=== PATIENT | female | born 1955 | race Caucasian/White ===

== ENCOUNTER 2017-12-10 16:30 | Observation (INO) | payer OTHER, SELFPAY ==
--- NOTE | 2017-12-04 14:29 | EKG12_ITS ---
Test Reason : PRE OP Blood Pressure : / mmHG Vent. Rate : 090 BPM Atrial Rate : 090 BPM P-R Int : 180 ms QRS Dur : 128 ms QT Int : 376 ms P-R-T Axes : 044 -02 002 degrees QTc Int : 459 ms Normal sinus rhythm Right bundle branch block Left ventricular hypertrophy with QRS widening Abnormal ECG Confirmed by ABIMAEL KAMARA, LESLIE ([id number]), assistant film editor ALEK BARTON ([id number]) on 12/10/2017 3:19:09 PM Referred By: Cade Guzman Confirmed By:LESLIE VARGHESE MD
[2017-12-04 16:12] LABS: Hematocrit 41.6 % (37-47); Hemoglobin 14.1 g/dl (12.0-15.0); Mean Corp Hgb Conc 33.9 g/gl (32-36); Mean Corpuscular Hgb 33.1 pg (27.0-32.0); Mean Corpuscular Volume 97.7 fL (81-99); Mean Platelet Vol. 10.7 fl (6.2-12.0); Platelet Count 238 K/mm3 (150-450); RBC Distribution Width CV 12.4 % (11.6-14.6); RBC Distribution Width SD 43.8 fl (35.1-43.9); Red Blood Count 4.26 M/mm3 (4.2-5.4); White Blood Count 5.8 K/mm3 (4.4-11.0)
[2017-12-04 16:15] LABS: Scan Indicated on CBC? Y/N NO
[2017-12-04 16:44] LABS: Anion Gap 10 (5-15); BUN 25 mg/dL (7-18); BUN/Creat Ratio 24.8 RATIO (10-20); Calcium,Total 8.8 mg/dL (8.5-10.1); Chloride 102 mmol/L (98-107); Creatinine, Serum 1.01 mg/dL (0.55-1.02); EST Glomerular Filtration Rate 59 mL/min (>60); Est Glom Filt Rate - Afr Amer 72 mL/min (>60); Glucose 87 mg/dL (74-106); Potassium 4.3 mmol/L (3.5-5.1); Sodium Level 140 mmol/L (136-145)
[2017-12-10] VITALS (24 sets, daily range): BP systolic 104–178; BP diastolic 53–91; PULSE 78–99; RESP 14–18; TEMP 36–36.8; O2SAT 2–100; BMI 45.0
[2017-12-10] MEDS: Cefazolin 2 GM in 0.9% Normal Saline 100 ML IV (09:43)
[2017-12-10] MEDS: Bupiv/Epi 0.5% Mpf 30 ML Vial (10:12)
--- NOTE | 2017-12-10 11:09 | PCM.IMDPSTOP ---
Immediate Post-Op Note Date of Procedure: 12/10/17 Primary Surgeon/Physician: Cade Guzman fire protection engineer: Edwin Baugh Pre-Operative Diagnosis: SAIS, AC Arthrosis, rotator cuff tear anf biceps tendonitis right shoulder Post-Operative Diagnosis: same Surgery/Procedure Performed:: Arthroscopic SAD, Olesya, biciptital tenotomy and rotator cuff repair right Description of Surgical Findings:: see note Estimated Blood Loss: min Specimen's removed: none Type of Anesthesia:: General/Regional ASA Class: ASA3 Severe Disease - Admit VTE Documentation VTE Present on Admission: No VTE Mechan Device Prophylaxis: SCD's VTE Pharm Prophylaxis ordered?: No Reason prophylaxis not ordered:: Treatment Not Indicated
--- NOTE | 2017-12-10 11:13 | OP.PN_ITS ---
Immediate Post-Op Note Date of Procedure: 12/10/17 Primary Surgeon/Physician: Cade Guzman reinforcer: Edwin Baugh Pre-Operative Diagnosis: SAIS, AC Arthrosis, rotator cuff tear anf biceps tendonitis right shoulder Post-Operative Diagnosis: same Surgery/Procedure Performed:: Arthroscopic SAD, Olesya, biciptital tenotomy and rotator cuff repair right Description of Surgical Findings:: see note Estimated Blood Loss: min Specimen's removed: none Type of Anesthesia:: General/Regional ASA Class: ASA3 Severe Disease - Admit VTE Documentation VTE Present on Admission: No VTE Mechan Device Prophylaxis: SCD's VTE Pharm Prophylaxis ordered?: No Reason prophylaxis not ordered:: Treatment Not Indicated
--- NOTE | 2017-12-10 11:39 | PCM.OP.BLANK ---
Operative Report Date of Procedure: 12/10/17 Primary Surgeon/Physician: Cade Guzman outside salesperson: Harley Baugh PA-C Preo-operative diagnosis: Right shoulder SAIS, AC arthrosis, biceps tendinopathy and rotator cuff tear Post-Operative Diagnosis: same Surgery/Procedure Performed: ASD, Olesya, biceps tenotomy and rotator cuff repair right Estimated Blood Loss: minimal Specimen's Removed: none Type of Anesthesia: General ASA Class: 3 Implants: [Arthrex fiberlink and loop x 2 with Arthrex swivellocks x 2] Surgical Indications: [ ] Procedure Description: Patient was greeted in the preoperative area. Their [right ] shoulder was marked with surgical marker. Preoperative antibiotics were administered. The patient was then taken to the operating suite in a stable condition. After adequate anesthesia was obtained and it was secured there placed in standard beachchair position. All bony prominences were well-padded her head was secured in a beachchair positioner. The arm was then prepped and draped in the usual sterile fashion. Surgical timeout was performed surgery was commenced. Standard posterior viewing portal was made and 30? arthroscope was introduced into the glenohumeral joint. Anterior portal was made under direct visualization. Extensive debridement of the anterior capsule was performed evaluation of the shoulder itself was performed with the following findings: [Moderate humeral head arthropathy, severe biceps tendonitis and a full thickness rotator cuff tear. T A biceps tenotomy was performed with an arthroscopy shaver. The undersurface of the rotator cuff was debrided with the shaver and a suture was placed in the cuff tear in order to identify it from the bursal surface. ]. The subacromial space was then entered and extensive debridement of the subacromial bursa was performed. The undersurface of the acromion was then debrided with a thermal wand. This did reveal a type II acromion. Subacromial decompression was then performed with a arthroscopic bur from anterolateral posteromedial create a type I acromion. When this was complete the wand was then utilized to debride the acromioclavicular joint. No significant osteoarthritic changes. A distal clavicle resection was then performed removing approximately 5 mm of distal clavicle not violating the superior acromioclavicular ligament. This was complete attention was then turned to the rotator cuff There was a complete tear of the supraspinatous tendon. ]. The greater tuberosity was debrided and decorticated to create some bleeding for rotator cuff healing. [The rotator cuff tear was repaired with two fiberlink Arthrex sutures and two fiberloops. These were brought out laterally and secured with two Arthrex Swivellock anchors ]. Excellent approximation of the rotator cuff to the decorticated bone was achieved. At this point all instruments were removed and the arthroscopic portals were closed with 3-0 nylon. Well-padded nonadherent dressing was applied and patient was taken to recovery room in stable condition. My hearing aid assistant, Mr. Baugh, was vital to the completion of this case. He assisted with positioning the patient. He provided visualization by moving the arm and the arthroscope during various portions of the diagnostic and operative arthroscopy. Subsequently he closed the wounds and applied the sterile dressing.
--- NOTE | 2017-12-10 11:53 | OP.PCM_ITS ---
Operative Report Date of Procedure: 12/10/17 Primary Surgeon/Physician: Cade Guzman speech assistant: Harley Baugh PA-C Preo-operative diagnosis: Right shoulder SAIS, AC arthrosis, biceps tendinopathy and rotator cuff tear Post-Operative Diagnosis: same Surgery/Procedure Performed: ASD, Olesya, biceps tenotomy and rotator cuff repair right Estimated Blood Loss: minimal Specimen's Removed: none Type of Anesthesia: General ASA Class: 3 Implants: [Arthrex fiberlink and loop x 2 with Arthrex swivellocks x 2] Surgical Indications: [ ] Procedure Description: Patient was greeted in the preoperative area. Their [right ] shoulder was marked with surgical marker. Preoperative antibiotics were administered. The patient was then taken to the operating suite in a stable condition. After adequate anesthesia was obtained and it was secured there placed in standard beachchair position. All bony prominences were well- padded her head was secured in a beachchair positioner. The arm was then prepped and draped in the usual sterile fashion. Surgical timeout was performed surgery was commenced. Standard posterior viewing portal was made and 30? arthroscope was introduced into the glenohumeral joint. Anterior portal was made under direct visualization. Extensive debridement of the anterior capsule was performed evaluation of the shoulder itself was performed with the following findings: [Moderate humeral head arthropathy, severe biceps tendonitis and a full thickness rotator cuff tear. T A biceps tenotomy was performed with an arthroscopy shaver. The undersurface of the rotator cuff was debrided with the shaver and a suture was placed in the cuff tear in order to identify it from the bursal surface. ]. The subacromial space was then entered and extensive debridement of the subacromial bursa was performed. The undersurface of the acromion was then debrided with a thermal wand. This did reveal a type II acromion. Subacromial decompression was then performed with a arthroscopic bur from anterolateral posteromedial create a type I acromion. When this was complete the wand was then utilized to debride the acromioclavicular joint. No significant osteoarthritic changes. A distal clavicle resection was then performed removing approximately 5 mm of distal clavicle not violating the superior acromioclavicular ligament. This was complete attention was then turned to the rotator cuff There was a complete tear of the supraspinatous tendon. ]. The greater tuberosity was debrided and decorticated to create some bleeding for rotator cuff healing. [The rotator cuff tear was repaired with two fiberlink Arthrex sutures and two fiberloops. These were brought out laterally and secured with two Arthrex Swivellock anchors ]. Excellent approximation of the rotator cuff to the decorticated bone was achieved. At this point all instruments were removed and the arthroscopic portals were closed with 3-0 nylon. Well-padded nonadherent dressing was applied and patient was taken to re covery room in stable condition. My assistant professor of forestry, Mr. Baugh, was vital to the completion of this case. He assisted with positioning the patient. He provided visualization by moving the arm and the arthroscope during various portions of the diagnostic and operative arthroscopy. Subsequently he closed the wounds and applied the sterile dressing.
[2017-12-10] MEDS: HYDROcodone Bitartrate/Apap 5/325 Tablet PO ×2 (15:25→23:57)
[2017-12-10] MEDS: HYDROmorphone 1 MG/ML Syringe IV ×2 (17:52→20:04)
[2017-12-10] MEDS: 0.9% Normal Saline 1,000 ML 100 ML IV (18:56)
[2017-12-11 03:00] VITALS: BP 162/87; PULSE 93; RESP 16; TEMP 36.6; O2SAT 93
[2017-12-11] MEDS: HYDROmorphone 1 MG/ML Syringe IV (04:43)
--- NOTE | 2017-12-11 07:38 | PCM.PN.ORT ---
Subjective: Patient sitting up in bed. Patient states pain is well-managed. Patient denies shortness of breath, chest pain, nausea vomiting, or calf pain. Has any numbness or tingling of the right arm or hand. Objective: Exam shows patient sitting comfortably without respiratory distress, speaking in full sentences. Patient is on room air. With a pulse ox of 93%. Patient has good flexion-extension rotation of her right hand as well as elbow neurovascular is intact. The dressings are clean dry intact. Patient is afebrile labs and vitals otherwise within normal limits - Physical Exam General: Alert, Oriented x3, Cooperative HEENT: PERRLA Oral: Moist Mucosa Cardiovascular: Regular rate Neurological: Cranial nerves II-XII grossly intact Psych/Mental Status: Normal Affect, Alert and oriented to time, place, person, mood and affect Vital Signs Temp Pulse Resp BP Pulse Ox 97.9 F 93 16 162/87 H 93 12/11/17 03:00 12/11/17 03:00 12/11/17 03:00 12/11/17 03:00 12/11/17 03:00 Oxygen Flow Rate (L/min) 2 Oxygen Delivery Method Room Air Weight: 122.7 kg Body Mass Index (BMI) 45.0 Intake and Output for Last 24 Hours 12/09/17 12/10/17 12/11/17 23:59 23:59 23:59 Intake Total 2700 / 2700 1266 / 1266 Balance 2700 / 2700 1266 / 1266 Medical Necessity - Tobacco Use Smoking Status: Never smoker Tobacco Use: Non-smoker Assessment/Plan Status post right shoulder arthroscopy, with rotator cuff repair, subacromial decompression, and distal clavicle resection Postop hypoxia\resolved Plan 1. Patient will continue all pain medications as prescribed preop 2. Continue ice to right shoulder as instructed 3. Continue sling at all times as instructed 4. Discharge home today 5. Follow-up as scheduled, and begin physical therapy as scheduled
--- NOTE | 2017-12-11 07:46 | DCINST_ITS ---
Discharge Diet: No Restrictions Discharge Activity: May Not Drive, May Shower May shower in (days): 3 Ice area for (Minutes): 20 - Every hour while awake. Weight Bearing Status: Weight bearing as tolerated Keep extremity elevated above heart level: Operative Extremity Call your doctor if your incision/area has: Continuous Slow Oozing, Sudden Increased Bleeding, Increased Pain/ Swelling, Increased Redness, Foul Smelling Discharge Call your doctor if you observe: Fever of 101 or Higher, Coldness, Increased Pain, Numbness or Tingling, Change in Color, Calf discomfort Remove Dressing in (days):: 3 - prior to shower Additional Instructions: TYLENOL XS 2 EVERY 8 HR Allergies/Adverse Reactions: Allergies No Known Allergies Allergy (Verified 12/03/17 10:05) Medications to take at Discharge Diclofenac [Voltaren] 150 mg PO DAILY 12/03/17 Esomeprazole Mag Trihydrate [Nexium] 40 mg PO DAILY 12/03/17 Furosemide [Lasix] 40 mg PO BID 12/03/17 Potassium Chloride [Klor-Con M20] 20 meq PO QHS 12/03/17 Simvastatin [Zocor] 20 mg PO QHS 12/03/17 Vitamin D3 1,000 units PO DAILY 12/03/17 Primary Care Physician: Prince Vazquez MD [Primary Care Provider] - Test Results: Test results from this visit will be discussed in further detail at your follow- up appointment, if applicable. Please Follow Up With: Edwin Baugh PA-C When: [facility] [place]
[2017-12-11 08:28] VITALS: BP 153/79; PULSE 90; RESP 18; TEMP 36.6; O2SAT 95
[2017-12-11] MEDS: HYDROcodone Bitartrate/Apap 5/325 Tablet PO (08:30)
== END 2017-12-11 10:52 | disposition home or self-care (01) ==
LOC: MS3 16:35
PROVIDERS: Admitting Provider Orthopaedic Surgery; Family Provider Family Medicine; PCP Family Medicine; Referring Provider Orthopaedic Surgery; Visit Provider Orthopaedic Surgery
PROC: (CPT 29827; principal; 2017-12-10 09:15)
DX: M19.011 Primary osteoarthritis, right shoulder (principal); M75.101 Unspecified rotator cuff tear or rupture of right shoulder, not specified as traumatic; M75.51 Bursitis of right shoulder; Z79.899 Other long term (current) drug therapy; I45.10 Unspecified right bundle-branch block; K51.90 Ulcerative colitis, unspecified, without complications; E78.00 Pure hypercholesterolemia, unspecified; K21.9 Gastro-esophageal reflux disease without esophagitis; G25.81 Restless legs syndrome; H54.7 Unspecified visual loss
CPT/HCPCS: 29824; 29826; 29827; 29828; 64415; 36415; 80048; 85027; 93005; 96361; 96374; 96376; 99218; J7030; J7120; G0378; G0379